=== PATIENT | male | born 1950 | race Caucasian/White ===

== ENCOUNTER → 2017-01-04 | Outpatient (CLI) | payer OTHER | LOC: BMCIMAGING 09:22 | PROVIDERS: ATTEND Orthopaedic Surgery | DX: M89.8X8 Other specified disorders of bone, other site (principal); M25.551 Pain in right hip ==

== ENCOUNTER 2017-02-17 19:21 | Emergency (ER) | payer OTHER ==
[2017-02-17] MEDS ORDERED: SKIN ADHESIVE (DERMABOND) 1 EACH TP ONE (20:03)
--- NOTE | 2017-02-17 20:38 | EDPHY ---
General Narrative: CHIEF COMPLAINT: Fall, lacerations to both hands HISTORY OF PRESENT ILLNESS: Patient reports being at a [place] party tonight. There is no alcohol involved, but he tripped landing on both hands. He sustained lacerations to the right thumb, right palm and left thumb. This was on a plate the broken large pieces. No concern for foreign body. No numbness or tingling. No bony tenderness of the extremities. No head or neck injury. No loss of conscious. No chest or back pain. No injuries elsewhere. Tetanus is up-to-date. Minimal pain. No other associated complaints or modifying factors TIME OF INJURY: Less than 1 hour prior to arrival TETANUS STATUS: Up-to-date MEDICAL/SURGICAL/SOCIAL HISTORY: BPH, dyslipidemia, pituitary apoplexy REVIEW OF SYSTEMS: Ten systems reviewed and are negative unless otherwise noted in the HPI EXAMINATION General Appearance: Alert, no distress Head: normocephalic, atraumatic. No Pringle sign. No raccoon eyes ENT: PERRLA, airway widely patent Neck: Supple nontender. Painless range of motion all planes. No step-off, crepitus or deformity Cardiovascular: Pulses normal throughout. Symmetric radial pulses 2+ Brisk cap refill Neurological: A&O, sensory symmetric, strength symmetric. Good strength of the interossei. No wrist drop. Skin: Warm and dry, no rash. Lacerations as noted below Laceration 1.: Right palm call 1 cm, superficial. No foreign body. Neuro intact Laceration 2.: right thumb, volar, 1.25 cm, no foreign body. Neuro intact Laceration 3.: Left thumb, volar, 1.5 cm, no foreign body. Neuro intact Extremities: Tenderness in the areas of laceration. Full flexion extension of all fingers. Full flexion extension of both wrists symmetrically. There is no snuffbox tenderness in either wrist. Neuro intact distal to the lacerations. DIFFERENTIAL DIAGNOSES: Including but not limited to lacerations, laceration complication, laceration foreign body MDM: 8:10 p.m. Lacerations to the right thumb, right palm, left thumb. These are all superficial but do need repair. The palm laceration will be closed with Dermabond. The thumb lacerations will require suture repair. He has no bony tenderness. Range of motion is fully intact. Neurovascular intact. No indication for x-ray. Digital blocks administered. Proceed with irrigation closure. 9:05 p.m. Lacerations that have been repaired without difficulty. Tolerated well. Neurovascular intact with full range of motion pre and postprocedure. Brisk cap refill the postprocedure. Wound care discussed. Follow up here in 7-10 days for suture removal. Skin glue care discussed. He is comfortable with this plan and discharged home stable condition. PROCEDURE: Laceration repair, 1. Consent: Verbal Location: Right palm Length of repair: Complexity: Simple Layer involvement: Single Anesthesia: None Irrigation: Extensive Debridement: None Procedure description: Following good anesthesia, the wound was copiously irrigated. Wound bed was explored and there is no foreign body noted. Wound borders were approximated well with good hemostasis. Tolerated well without complication. Suture/Staple material: Dermabond skin glue Wound care: Routine as discussed PROCEDURE: Laceration repair, 2. Consent: Verbal Location: Right thumb, volar Length of repair: 1.25 cm Complexity: Simple Layer involvement: Single Anesthesia: Local. 1% lidocaine without epinephrine. 5 mL Irrigation: Extensive Debridement: None Procedure description: Following good anesthesia, the wound was copiously irrigated. Wound bed was explored and there is no foreign body noted. Wound borders were approximated well with good hemostasis. Tolerated well without complication. Suture/Staple material: 5-0 Prolene. 2 simple interrupted sutures Wound care: Routine as discussed Suture/Staple removal: 7-10 Days PROCEDURE: Laceration repair 3. Consent: Verbal Location: Left thumb, volar Length of repair: 1 point Complexity: 1.5 cm Layer involvement: Single Anesthesia: Local per 1% lidocaine plain. 7 mL Irrigation: Extensive Debridement: . None Procedure description: Following good anesthesia, the wound was copiously irrigated. Wound bed was explored and there is no foreign body noted. Wound borders were approximated well with good hemostasis. Tolerated well without complication. Suture/Staple material: 5-0 Prolene. 4 simple interrupted sutures Wound care: Routine as discussed Suture/Staple removal: 7-10 Days ED Precautions: Worsening pain. Erythema, edema, cyanosis, pallor, paresthesia or anesthesia. - History Smoking Status: Never smoked - Objective Vital Signs: Initial Vital Signs Temperature (C) 97.5 F 02/17/17 19:24 Heart Rate 46 L 02/17/17 19:24 Respiratory Rate 16 02/17/17 19:24 Blood Pressure 155/74 H 02/17/17 19:24 O2 Sat (%) 98 02/17/17 19:24 O2 Delivery Mode Room Air Allergies/Adverse Reactions: clindamycin Allergy (Intermediate, Verified 01/31/16 10:21) GI UPSET Penicillins Allergy (Verified 01/31/16 10:21) Rash LACTOSE INTOL Allergy (Uncoded 07/18/12 17:25) "GAS-DIARRHEA" Home Medications: Medication Instructions Recorded Dutasteride/Tamsulosin HCl [Petra 1 each PO DAILY 07/18/12 0.5-0.4 Mg Capsule] Losartan Potassium [Cozaar] 25 mg PO DAILY 07/18/12 Simvastatin [Zocor 20 mg (RX)] 20 mg PO HS 07/18/12 Triazolam [Halcion 0.25MG (RX)] 0.375 mg PO HS 07/18/12 Diphenhydramine HCl [Simply Sleep] 50 mg PO HS 07/22/12 Naproxen Sodium [Aleve 220 MG (*)] 220 mg PO BID 01/24/16 Departure - Departure Disposition: Home, Routine, Self-Care Clinical Impression: Laceration of thumb, right Qualifiers: Encounter type: initial encounter Damage to nail status: without damage Foreign body presence: without foreign body Qualified Code(s): S61.011A - Laceration without foreign body of right thumb without damage to nail, initial encounter Laceration of thumb, left Qualifiers: Encounter type: initial encounter Damage to nail status: without damage Foreign body presence: without foreign body Qualified Code(s): S61.012A - Laceration without foreign body of left thumb without damage to nail, initial encounter Laceration of right palm Qualifiers: Encounter type: initial encounter Qualified Code(s): S61.411A - Laceration without foreign body of right hand, initial encounter Condition: Good Instructions: Care For Your Stitches (ED), Laceration (ED) Additional Instructions: 1. Daily wound care as discussed 2. Showering instructions as discussed 3. Return here for suture removal in 7-10 days Referrals: Jose Braxton MD [Primary Care Provider] - As per Instructions
[2017-02-17 21:27] VITALS: BP 114/62; PULSE 45; RESP 18; TEMP 98.2; O2SAT 97
== END 2017-02-17 21:27 | disposition home or self-care (01) ==
PROC: 0HQFXZZ Repair Right Hand Skin, External Approach (ICD-10-PCS; principal; 2017-02-17)
PROC: 0HQGXZZ Repair Left Hand Skin, External Approach (ICD-10-PCS; principal; 2017-02-17)
DX: S61.011A Laceration without foreign body of right thumb without damage to nail, initial encounter (principal); S61.012A Laceration without foreign body of left thumb without damage to nail, initial encounter; S61.411A Laceration without foreign body of right hand, initial encounter; W01.118A Fall on same level from slipping, tripping and stumbling with subsequent striking against other sharp object, initial encounter

== ENCOUNTER → 2017-04-26 | Outpatient (CLI) | payer OTHER | LOC: BMCIMAGING 14:18 | PROVIDERS: ATTEND Internal Medicine | DX: S22.31XA Fracture of one rib, right side, initial encounter for closed fracture (principal) | CPT/HCPCS: 71101-PO ==

== ENCOUNTER → 2017-05-31 | Outpatient (CLI) | payer OTHER | LOC: FIMAGING 09:10 | PROVIDERS: ATTEND Internal Medicine | DX: R91.1 Solitary pulmonary nodule (principal) ==

== ENCOUNTER → 2017-08-29 | Outpatient (CLI) | payer OTHER | LOC: BHFA 09:00 | PROVIDERS: ATTEND Internal Medicine Cardiovascular Disease | DX: R00.1 Bradycardia, unspecified (principal); R06.09 Other forms of dyspnea ==

== ENCOUNTER → 2017-09-04 | Outpatient (CLI) | payer OTHER | LOC: BHLMT 14:00 | PROVIDERS: ATTEND Internal Medicine Cardiovascular Disease | DX: I25.10 Atherosclerotic heart disease of native coronary artery without angina pectoris (principal) | CPT/HCPCS: 78452; 93017; A9500 ==

== ENCOUNTER → 2017-09-06 | Outpatient (CLI) | payer OTHER | LOC: BHLMT 10:45 | PROVIDERS: ATTEND Internal Medicine Cardiovascular Disease | DX: R01.1 Cardiac murmur, unspecified (principal); R00.1 Bradycardia, unspecified | CPT/HCPCS: 93306-PO ==

== ENCOUNTER → 2018-06-27 | Outpatient (CLI) | payer OTHER | LOC: BMCIMAGING 13:34 | PROVIDERS: ATTEND Internal Medicine Nephrology | DX: N32.89 Other specified disorders of bladder (principal); N40.0 Benign prostatic hyperplasia without lower urinary tract symptoms ==

== ENCOUNTER → 2018-07-18 | Outpatient (CLI) | payer OTHER ==
[~2018-07-18] MED LIST: IOPAMIDOL (ISOVUE-300) 100 ML BTL ONE
== END ==
LOC: FIMAGING 13:54
PROVIDERS: ATTEND Internal Medicine
DX: R10.31 Right lower quadrant pain (principal); Z98.1 Arthrodesis status
CPT/HCPCS: 74177; Q9967; 82565-PO